=== PATIENT | female | born 1990 | race Caucasian/White ===

== ENCOUNTER 2017-04-01 11:04 | Outpatient (CLI) | payer BC ==
[~2017-04-01] VITALS: Ht 165.1 cm; Wt 153.6 kg
[~2017-04-01 11:04] MED LIST: BIRTH CONTROL; CLINDAMYCIN HC300 MG PO; FLEXERIL10 MG PO; GENTAK3.5 GM BOTH EYES; JUNEL FE 1.5-31 EACH PO; LOESTRIN1 EACH PO; LORTAB 5-325 M1 EACH PO; MOTRIN IB200 MG PO; MOTRIN600 MG PO; Motrin PO; NORCO 5/3251 TABLET PO; PREFERA-OB1 TABLET PO; Percocet 5/325,Endoc PO; VICODIN 5-5001 EACH PO; ZOFRAN8 MG PO; [UNRECOGNIZED DRUG - REMARK]; ~No Medications
[2017-04-01 11:20] VITALS: BP 141/98
[2017-04-01 11:21] VITALS: BP 122/79
[2017-04-01 11:35] VITALS: BP 127/86
== END 2017-04-01 13:44 | disposition home or self-care (01) ==
LOC: LDRP-OP 11:04 → 2WEST 11:05 → LDRP-OP 06-01 11:00
DX: O36.8130 Decreased fetal movements, third trimester, not applicable or unspecified (principal); Z3A.35 35 weeks gestation of pregnancy; O34.219 Maternal care for unspecified type scar from previous cesarean delivery
CPT/HCPCS: 59025; G0378

== ENCOUNTER 2017-04-24 06:14 | Inpatient (IN) | payer BC ==
[~2017-04-24] VITALS: Ht 165.1 cm; Wt 152.5 kg
[~2017-04-24 06:14] MED LIST changes: +TYLENOL EXTRA500 MG PO; +ZANTAC75 M1 PO
[2017-04-24 07:23] VITALS: BP 131/65
[2017-04-24] MEDS ORDERED: PRENATAL TABLE1 EAC3 PO (07:45)
[2017-04-24] MEDS ORDERED: PERCOCET 5/31 TABLET PO (10:15)
[2017-04-24] MEDS ORDERED: MOTRIN800 MG PO (10:15)
[2017-04-24 11:35] VITALS: BP 120/66
[2017-04-24 13:30] VITALS: BP 123/59
[2017-04-24 15:22] VITALS: BP 121/57
[2017-04-24 17:30] VITALS: BP 142/67
[2017-04-25 06:40] LABS: EOSINOPHIL (%) 0.6 % (0-5); EOSINOPHIL COUNT 0.1 K/uL (0-0.3); HEMATOCRIT 30.3 % (36.0-46.0); IMMATURE GRANULOCYTE (%) 0.4 % (0.0-0.7); IMMATURE GRANULOCYTE COUNT 0.1 K/uL; INSTRUMENT ABS NEUTROPHIL CT 10.2 K/uL; LYMPHOCYTE COUNT 2.6 K/uL (1.0-2.8); MCH 28.2 PG (29.0-34.0); MCV 88.1 FL (83-99); MEAN PLAT.VOLUME 9.6 uM^3 (9.5-12.4); MONOCYTE (%) 6.7 % (3-12); MONOCYTE COUNT 0.9 K/uL (0-0.8); NEUTROPHIL (%) 73.6 % (45-76); NEUTROPHIL COUNT 10.2 K/uL (1.8-6.4); PLATELET COUNT 198 K/uL (156-360); RBC DIS.WIDTH-CV 15.3 % (11.8-14.6); RBC DIS.WIDTH-SD 48.8 % (39-53); RED BLOOD COUNT 3.44 M/uL (3.80-5.20); WHITE BLOOD COUNT 13.9 K/uL (4.1-10.2)
[2017-04-25 08:36] VITALS: BP 115/66
[2017-04-25 11:03] VITALS: BP 118/51
[2017-04-25 15:52] VITALS: BP 117/64
[2017-04-26 08:06] VITALS: BP 103/50
== END 2017-04-26 17:10 | disposition home or self-care (01) | DRG 765 ==
LOC: 2WEST 06:14 → 2SOUTH 09:18 → 2WEST 04-26 17:10
PROVIDERS: Obstetrics & Gynecology
PROC: 10D00Z1 Extraction of Products of Conception, Low, Open Approach (ICD-10-PCS; principal; 2017-04-24)
DX: O34.211 Maternal care for low transverse scar from previous cesarean delivery (principal); O31.13X1 Continuing pregnancy after spontaneous abortion of one fetus or more, third trimester, fetus 1; Q79.6 Ehlers-Danlos syndromes; O99.214 Obesity complicating childbirth; E66.01 Morbid (severe) obesity due to excess calories; Z68.43 Body mass index [BMI] 50.0-59.9, adult; O99.334 Smoking (tobacco) complicating childbirth; F17.200 Nicotine dependence, unspecified, uncomplicated; Z3A.39 39 weeks gestation of pregnancy; Z37.0 Single live birth
CPT/HCPCS: 36415; 85025; 86900; 86901; J0690; J1100; J1170; J1200; J1885; J2274; J2405; J2765; J7120

== ENCOUNTER 2017-05-28 17:22 | Emergency (ER) | payer BC ==
[~2017-05-28] VITALS: Ht 165.1 cm; Wt 141.7 kg
[~2017-05-28 17:22] MED LIST changes: +MOTRIN800 MG PO; +PERCOCET 5/31 TABLET PO; +PRENATAL TABLE1 EAC3 PO
[2017-05-28 18:10] LABS: HEMATOCRIT 37.9 % (36.0-46.0); MCH 27.3 PG (29.0-34.0); MCHC 31.9 G/DL (30.0-36.0); MCV 85.4 FL (83-99); MEAN PLAT.VOLUME 9.5 uM^3 (9.5-12.4); PLATELET COUNT 273 K/uL (156-360); RBC DIS.WIDTH-CV 13.7 % (11.8-14.6); RBC DIS.WIDTH-SD 42.5 % (39-53); RED BLOOD COUNT 4.44 M/uL (3.80-5.20); WHITE BLOOD COUNT 20.7 K/uL (4.1-10.2)
[2017-05-28 18:21] LABS: CHLORIDE 108 mEq/L (99-109); POTASSIUM 3.9 mEq/L (3.7-5.4); SODIUM 142 mEq/L (136-147)
[2017-05-28 18:24] LABS: GLUCOSE 106 mg/dL (70-99)
[2017-05-28 18:25] LABS: ANION GAP 12 MEQ/L (2-14); TOTAL BILIRUBIN 0.4 mg/dL (0.0-1.0)
[2017-05-28 18:27] LABS: ALKALINE PHOSPHATASE 96 IU/L (3-129); GFR ESTIMATE (CALCULATED) > 59 mL/min/
[2017-05-28 18:28] LABS: UREA NITROGEN (BUN) 8 mg/dL (9-23)
[2017-05-28 18:36] LABS: QUANTITATIVE HCG < 4.0 MIU/ML
[2017-05-28 18:53] LABS: ADD MIUA? NO; BILIRUBIN NEGATIVE; BLOOD NEGATIVE; COLOR YELLOW ((YELLOW)); GLUCOSE (STRIP) NEGATIVE; KETONES NEGATIVE; LEUKOCYTES NEGATIVE; NITRITE NEGATIVE; PROTEIN (STRIP) NEGATIVE; SPECIFIC GRAVITY 1.017 (1.000-1.030); UCUL ADDED? NO; UROBILINOGEN 0.2 MG/DL (0.2-1.0)
[2017-05-28] MEDS ORDERED: ZOFRAN ODT4 MG PO (20:56)
[2017-05-28] MEDS ORDERED: MOTRIN800 MG PO (20:56)
[2017-05-28] MEDS ORDERED: NORCO 5/3251 TABLET PO (20:56)
[2017-05-28 22:31] VITALS: BP 118/65
== END 2017-05-28 22:32 | disposition home or self-care (01) ==
LOC: EME 17:22
DX: R10.33 Periumbilical pain (principal); G89.18 Other acute postprocedural pain; F17.200 Nicotine dependence, unspecified, uncomplicated; O99.89 Other specified diseases and conditions complicating pregnancy, childbirth and the puerperium
CPT/HCPCS: 74177; 80053; 81003; 84702; 85027; 99281; 99285; J1885; J3010; J7040